=== PATIENT | male | born 1995 | race African-American/Black ===

== ENCOUNTER 2022-08-15 19:58 | Emergency (ER) | payer OTHER ==
[2022-08-15] MEDS ORDERED: IBUPROFEN 400 MG TAB ONE (21:05)
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
[2022-08-15 22:35] VITALS: TEMP 97.7
[2022-08-15 22:37] VITALS: BP 134/79; O2SAT 98
== END 2022-08-15 22:29 | disposition home or self-care (01) ==
LOC: ER 19:58
DX: R07.89 Other chest pain (principal); V43.62XA Car passenger injured in collision with other type car in traffic accident, initial encounter; F17.210 Nicotine dependence, cigarettes, uncomplicated
CPT/HCPCS: 99284